=== PATIENT | male | born 1975 | race Caucasian/White ===

== ENCOUNTER 2019-05-08 12:44 | Emergency (ER) | payer BC ==
--- NOTE | 2019-05-08 13:27 | RAD ---
RADIOGRAPH CHEST 2 VIEWS: HISTORY: A 43-year-old male with cough. FINDINGS: There is no air space density, pulmonary edema, pleural effusion, pneumothorax, or cardiomegaly. IMPRESSION: No acute cardiopulmonary findings. jn [] POS: [facility]
== END 2019-05-08 13:58 | disposition home or self-care (01) ==
LOC: MADERS 12:44
DX: J22 Unspecified acute lower respiratory infection (principal); J45.909 Unspecified asthma, uncomplicated; F17.210 Nicotine dependence, cigarettes, uncomplicated; Z79.51 Long term (current) use of inhaled steroids
CPT/HCPCS: 71046; J7620

== ENCOUNTER 2019-06-04 11:36 | Emergency (ER) | payer BC ==
[2019-06-04] MEDS ORDERED: Adacel (T-DAP) 0.5 ML SYRINGE ONE (12:40)
== END 2019-06-04 12:48 | disposition home or self-care (01) ==
LOC: MADERS 11:36
DX: T21.01XA Burn of unspecified degree of chest wall, initial encounter (principal); F17.210 Nicotine dependence, cigarettes, uncomplicated; J45.909 Unspecified asthma, uncomplicated; Z79.51 Long term (current) use of inhaled steroids; X19.XXXA Contact with other heat and hot substances, initial encounter
CPT/HCPCS: 90471; 90715

== ENCOUNTER 2020-05-06 15:27 | Emergency (ER) | payer OTHER ==
--- NOTE | 2020-05-06 16:48 | RAD ---
XR Chest 1 View Portable HISTORY: Shortness of breath COMPARISON: 05/08/2019 FINDINGS: The heart size is normal. The lungs are well expanded without focal areas of consolidation, pneumothorax or pleural effusions. IMPRESSION: No radiographic evidence of acute cardiopulmonary process.
[2020-05-07 14:55] LABS: SARS-CoV-2 MS2 Positive; SARS-CoV-2 N Gene Positive; SARS-CoV-2 S Gene Positive; SARS-CoV-2 orf1ab Positive
== END 2020-05-06 17:40 | disposition home or self-care (01) ==
LOC: MADERS 15:27
DX: U07.1 COVID-19 (principal); J45.909 Unspecified asthma, uncomplicated; F17.210 Nicotine dependence, cigarettes, uncomplicated; Z79.51 Long term (current) use of inhaled steroids
CPT/HCPCS: 71045; 87635; U0003